=== PATIENT | male | born 1995 | race African-American/Black ===

== ENCOUNTER 2017-01-23 15:25 | Emergency (ER) | payer SELFPAY ==
[2017-01-23] MEDS ORDERED: Cephalexin CAP* 500 MG PO ONE (16:08)
--- NOTE | 2017-01-23 16:14 | ED ---
Aiden Albrecht Billy, scribed for Tucker Rivera MD on 01/23/17 at 1554 . Skin Complaint - HPI Summary HPI Summary: Patient is a 21 year-old male coming to [facility] for evaluation of a small bump on his left cheek. He states that the bump has been on his cheek for 3-4 days and progressively growing over time. He states that the bump began as a pimple. Nothing has made his symptoms better or worse. He has no other symptoms or complaints at this time. - History of Current Complaint Chief Complaint: EDRashSkinAbscess Time Seen by Provider: 01/23/17 15:52 Stated Complaint: LUMP ON CHEEK Hx Obtained From: Patient Onset/Duration: Started Days Ago, Still Present Timing: Constant Onset Severity: Moderate Current Severity: Moderate Skin Location: Face Character: Raised Aggravating Symptom(s): Nothing Alleviating Symptom(s): Nothing Associated Signs & Symptoms: Negative - Allergy/Home Medications Allergies/Adverse Reactions: Allergies Allergy/AdvReac Type Severity Reaction Status Date / Time No Known Allergies Allergy Verified 02/09/14 14:00 PMH/Surg Hx/FS Hx/Imm Hx Endocrine/Hematology History: Denies: Hx Diabetes, Hx Thyroid Disease Cardiovascular History: Denies: Hx Hypertension Respiratory History: Reports: Hx Asthma Denies: Hx Chronic Obstructive Pulmonary Disease (COPD) GI History: Denies: Hx Ulcer Psychiatric History: Reports: Hx Attention Deficit Hyperactivity Disorder Infectious Disease History: No Infectious Disease History: Denies: Hx Clostridium Difficile, Hx Hepatitis, Hx Human Immunodeficiency Virus (HIV), Hx of Known/Suspected MRSA, Hx Shingles, Hx Tuberculosis, Traveled Outside the [place] in Last 30 Days - Family History Known Family History: Negative: Cardiac Disease, Hypertension, Diabetes - Social History Alcohol Use: Occasionally Substance Use Type: Reports: None Smoking Status (MU): Former Smoker Review of Systems Negative: Fever, Chills Positive: Other - bump on left cheek All Other Systems Reviewed And Are Negative: Yes Physical Exam - Summary Physical Exam Summary: The patient is well-nourished in no acute distress and in no acute pain. The skin is warm and dry and skin color reflects adequate perfusion. Small abscess on the left cheek. HEENT: The head is normocephalic and atraumatic. The pupils are equal and reactive. The conjunctivae are clear and without drainage. Nares are patent and without drainage. Mouth reveals moist mucous membranes and the throat is without erythema and exudate. The external ears are intact. The ear canals are patent and without drainage. The tympanic membranes are intact. Neck is supple with full range of motion and non-tender. There are no carotid bruits. There is no neck vein distension. Respiratory: Chest is non-tender. Lungs are clear to auscultation and breath sounds are symmetrical and equal. Cardiovascular: Hear is regular rate and rhythm. There is no murmur or rub auscultated. There is no peripheral edema and pulses are symmetrical and equal. Abdomen: The abdomen is soft and non-tender. There are normal bowel sounds heard in all four quadrants and there is no organomegaly palpated. Musculoskeletal: There is no back pain noted. Extremities are non-tender with full range of motion. There is good capillary refill. There is no peripheral edema or calf tenderness elicited. Neurological: Patient is alert and oriented to person, place and time. The patient has symmetrical motor strength in all four extremities. Cranial nerves are grossly intact. Deep tendon reflexes are symmetrical and equal in all four extremities. Psychiatric: The patient has an appropriate affect and does not exhibit any anxiety or depression. Triage Information Reviewed: Yes Vital Signs On Initial Exam: Initial Vitals Temp Pulse Resp BP Pulse Ox 97.9 F 75 20 147/64 100 01/23/17 15:31 01/23/17 15:31 01/23/17 15:31 01/23/17 15:31 01/23/17 15:31 Vital Signs Reviewed: Yes Diagnostics - Vital Signs Vital Signs Temp Pulse Resp BP Pulse Ox 01/23/17 15:31 97.9 F 75 20 147/64 100 - Laboratory Lab Statement: Any lab studies that have been ordered have been reviewed, and results considered in the medical decision making process. Course/Dx - Course Course Of Treatment: Procedure - Incision and Drainage. Patient positioned appropriately, 3cc lidocaine with/without epinephrine was used as a local anesthetic. #11 blade scalpel used for single incision. Additional local anesthetic injected into surrounding viable tissue prior to blunt dissection of loculated adhesions. Copious drainage of pus was expressed (culture obtained). Wound packed with iodoform gauze. Procedure tolerated without complications. Wound dressed with sterile 4x4 gauze and paper tape. Assessment/Plan: Patient is a 21 year-old male coming to [facility] for evaluation of a small bump on his left cheek. He states that the bump has been on his cheek for 3-4 days and progressively growing over time. He states that the bump began as a pimple. Nothing has made his symptoms better or worse. He has no other symptoms or complaints at this time. I&D performed; see procedure note for further details. He will be discharged with Keflex and to follow up with PCP. I discussed all the findings and test results with the patient. Patient was instructed to return to the emergency room immediately if any of the symptoms return or worsens. Plan of care was discussed with the patient and understands and agrees. All questions were answered at patient satisfaction. There were no further complaints or concerns. Lung exam before discharge: CTA B /L. Good air exchange. No wheezing or crackles heard. CVS: S1 and S2 present. No murmurs appreciated. Patient is alert and oriented x 3. Patient is hemodynamically stable. Patient will be discharged home with follow up water manager in the next 2-3 days - Differential Diagnoses - Skin Complaint Differential Diagnoses: Drug Rash, Urticaria - Diagnoses Provider Diagnoses: Abscess, Cellulitis Discharge - Discharge Plan Condition: Stable Disposition: HOME Prescriptions: Cephalexin CAP* [Keflex CAP*] 500 mg PO QID #40 cap Patient Education Materials: Abscess (ED), Cellulitis (ED) Referrals: [facility] PHYSICIAN REFERRAL [Outside] The documentation as recorded by the Aiden newby Billy accurately reflects the service I personally performed and the decisions made by me, Tucker Rivera MD.
[2017-01-23 16:37] VITALS: BP 128/78
== END 2017-01-23 16:36 | disposition home or self-care (01) ==
LOC: ED 15:25
DX: L03.211 Cellulitis of face (principal); Z87.891 Personal history of nicotine dependence
CPT/HCPCS: 87070; 87205; 87640; 87641; 99282; A9270-GY

== ENCOUNTER 2017-05-08 12:10 | Emergency (ER) | payer SELFPAY ==
[2017-05-08 12:24] VITALS: BP 132/68
[2017-05-08] MEDS ORDERED: cefTRIAXone VIAL(*) 250 MG VIAL IM ONE (12:52)
[2017-05-08 12:53] LABS: Urine Bacteria Absent (Absent); Urine Bilirubin Negative (Negative); Urine Glucose Negative (Negative); Urine Nitrite Negative (Negative)
[2017-05-08] MEDS ORDERED: Azithromycin TAB* 250 MG PO ONE (12:53)
--- NOTE | 2017-05-08 12:57 | ED ---
GI/ HPI - HPI Summary HPI Summary: 22M presents for STD testing. His girlfriend got tested for gc/clamydia and was positive. He denies any penile discharge, pain, dysuria, hematuria, urgency or frequency. He denies any abdominal pain, n/v, or fever. - History of Current Complaint Chief Complaint: EDUrogenitalProblems Time Seen by Provider: 05/08/17 12:28 Stated Complaint: NEEDS TESTING Pain Intensity: 0 - Allergy/Home Medications Allergies/Adverse Reactions: Allergies Allergy/AdvReac Type Severity Reaction Status Date / Time No Known Allergies Allergy Verified 02/09/14 14:00 PMH/Surg Hx/FS Hx/Imm Hx Endocrine/Hematology History: Denies: Hx Diabetes, Hx Thyroid Disease Cardiovascular History: Denies: Hx Hypertension Respiratory History: Reports: Hx Asthma Denies: Hx Chronic Obstructive Pulmonary Disease (COPD) GI History: Denies: Hx Ulcer Psychiatric History: Reports: Hx Attention Deficit Hyperactivity Disorder Infectious Disease History: Denies: Hx Clostridium Difficile, Hx Hepatitis, Hx Human Immunodeficiency Virus (HIV), Hx of Known/Suspected MRSA, Hx Shingles, Hx Tuberculosis, Traveled Outside the in Last 30 Days - Family History Known Family History: Negative: Cardiac Disease, Hypertension, Diabetes - Social History Alcohol Use: Occasionally Substance Use Type: Reports: None Smoking Status (MU): Former Smoker Review of Systems Negative: Fever Negative: Chest Pain Negative: Shortness Of Breath Positive: other - possible std exposure. Negative: dysuria All Other Systems Reviewed And Are Negative: Yes Physical Exam Triage Information Reviewed: Yes Vital Signs On Initial Exam: Initial Vitals Temp Pulse Resp BP Pulse Ox 98.4 F 86 16 132/68 100 05/08/17 12:21 05/08/17 12:21 05/08/17 12:21 05/08/17 12:21 05/08/17 12:21 Vital Signs Reviewed: Yes Appearance: Positive: Well-Appearing Skin: Positive: Warm, Dry Head/Face: Positive: Normal Head/Face Inspection Eyes: Positive: Normal, Conjunctiva Clear Respiratory/Lung Sounds: Positive: Clear to Auscultation, Breath Sounds Present Cardiovascular: Positive: Normal, RRR Abdomen Description: Positive: Nontender, Soft Bowel Sounds: Positive: Present Diagnostics - Vital Signs Vital Signs Temp Pulse Resp BP Pulse Ox 05/08/17 12:21 98.4 F 86 16 132/68 100 - Laboratory Lab Results: Lab Results 05/08/17 Range/Units 12:35 Urine Color Yellow Urine Appearance Cloudy Urine pH 8.0 (5-9) Ur Specific [place] 1.021 (1.010-1.030) Urine Protein 1+(30 mg/dl) H (Negative) Urine Ketones Negative (Negative) Urine Blood Negative (Negative) Urine Nitrate Negative (Negative) Urine Bilirubin Negative (Negative) Urine Urobilinogen Negative (Negative) Ur Leukocyte Esterase 2+ H (Negative) Urine WBC (Auto) 3+(>20/hpf) H (Absent) Urine RBC (Auto) Trace(0-2/hpf) (Absent) Ur Squamous Epith Cells Present H (Absent) Urine Bacteria Absent (Absent) Urine Glucose Negative (Negative) Lab Statement: Any lab studies that have been ordered have been reviewed, and results considered in the medical decision making process. GIGU Course/Dx - Course Course Of Treatment: 22M presents for STD testing. His girlfriend got tested for gc/clamydia and was positive. He denies any penile discharge, pain, dysuria , hematuria, urgency or frequency. He denies any abdominal pain, n/v, or fever. abdomen nontender. did not treat for uti as no uti symptoms and likely containment as possible std related. treated for gc/clamdyia with rocephin and azithromycin. patient understands and agrees with plan - Diagnoses Differential Diagnoses - Male: STD, Ureteral Calculi, Urinary Tract Infection Provider Diagnoses: Sexually transmissible disease Discharge - Discharge Plan Condition: Good Disposition: HOME Patient Education Materials: Sexually Transmitted Diseases (ED) Referrals: [facility] PHYSICIAN REFERRAL [Outside] Additional Instructions: You have been treated for gonorrhea and chlamydia Avoid sexual contact for at least 5 days Return to ED if develop any new or worsening symptoms
== END 2017-05-08 13:14 | disposition home or self-care (01) ==
LOC: ED 12:10
DX: A64 Unspecified sexually transmitted disease (principal)
CPT/HCPCS: 81003; 81015; 87086; 87491; 87591; 96372; 99282; A9270-GY; J0696

== ENCOUNTER 2017-11-06 15:05 | Emergency (ER) | payer SELFPAY ==
[2017-11-06 15:14] VITALS: BP 144/73
--- NOTE | 2017-11-06 15:27 | UC ---
Complaint Male HPI - HPI Summary HPI Summary: Pt presents wanting STD testing and treatment. He tells me that earlier this morning he received a call from the health department informing him that one of his recent sexual partners was diagnosed with Chlamydia. He currently has no fever, chills, burning with urination, discharge, ulcers, or pain. He has never had an STD in the past. - History of Current Complaint Chief Complaint: UCGU Stated Complaint: STD TESTING Time Seen by Provider: 11/06/17 15:22 Hx Obtained From: Patient - Allergies/Home Medications Allergies/Adverse Reactions: Allergies Allergy/AdvReac Type Severity Reaction Status Date / Time No Known Allergies Allergy Verified 11/06/17 15:14 Home Medications: Home Medications NK [No Home Medications Reported] 11/06/17 [History Confirmed 11/06/17] PMH/Surg Hx/FS Hx/Imm Hx Previously Healthy: Yes - Surgical History Surgical History: None - Family History Known Family History: Negative: Cardiac Disease, Hypertension, Diabetes - Social History Alcohol Use: Occasionally Substance Use Type: None Smoking Status (MU): Former Smoker Review of Systems Constitutional: Negative Skin: Negative Respiratory: Negative Cardiovascular: Negative Gastrointestinal: Negative Genitourinary: Negative Psychological: Negative All Other Systems Reviewed And Are Negative: Yes Physical Exam Triage Information Reviewed: Yes Appearance: Well-Appearing, Well-Nourished Vital Signs: Initial Vital Signs Temp 98.2 F 11/06/17 15:10 Pulse 73 11/06/17 15:10 Resp 20 11/06/17 15:10 BP 144/73 11/06/17 15:10 Pulse Ox 100 11/06/17 15:10 Vital Signs Reviewed: Yes Eyes: Positive: Conjunctiva Clear. Negative: Conjunctiva Inflamed, Discharge Neck: Positive: Supple, Nontender, No Lymphadenopathy Respiratory: Positive: Chest non-tender, Lungs clear, Normal breath sounds, No respiratory distress, No accessory muscle use Cardiovascular: Positive: RRR, No Murmur, Pulses Normal Neurological: Positive: Alert Psychological: Positive: Age Appropriate Behavior Skin: Positive: Other - No penile, testicular, or genital erythema, tenderness, discharge, or ulcerations.. Negative: rashes Complaint Male Course/Dx - Course Course Of Treatment: Ceftriaxone 250mg IM here and Azithromycin 1gm po. Advised not to engage in sexual activity for 1 week. He was offered other STD testing such as HIV, RPR, and hepatitis, but declined. Advised to practice safe sex and use condoms. A urine culture for GC was obtained and sent to the lab. - Differential Dx/Diagnosis Differential Diagnosis/HQI/PQRI: Urinary Tract Infection, Other - STD Provider Diagnoses: High risk sexual activity - exposure to chlamydia Discharge - Discharge Plan Condition: Stable Disposition: HOME Patient Education Materials: Chlamydia (ED) Referrals: No Primary Care Phys,NOPCP [Primary Care Provider] - Additional Instructions: If you develop a fever, SOB, chest pain, new or worsening symptoms - please call your PCP or go to the ED. Your blood pressure was mildly elevated at todays visit. Please see your primary provider within 4 weeks for recheck and re-evaluation.
[2017-11-06] MEDS ORDERED: cefTRIAXone VIAL(*) 250 MG VIAL IM ONE (15:34)
[2017-11-06] MEDS ORDERED: Azithromycin TAB* 250 MG PO ONE (15:35)
[2017-11-06] MEDS ORDERED: Lidocaine 1% MPF* 2 ML VIAL INJ ONE (15:37)
== END 2017-11-06 16:05 | disposition home or self-care (01) ==
LOC: UCEAST 15:05
DX: Z11.3 Encounter for screening for infections with a predominantly sexual mode of transmission (principal); Z20.2 Contact with and (suspected) exposure to infections with a predominantly sexual mode of transmission; Z87.891 Personal history of nicotine dependence
CPT/HCPCS: 87491; 87591; 96372; 99212; A9270-GY; G0463; J0696